=== PATIENT | female | born 1970 | race Caucasian/White ===

== ENCOUNTER → 2020-05-23 | Outpatient (CLI) | payer OTHER, SELFPAY ==
--- NOTE | 2020-05-23 | CYSPIN_PTH ---
PATIENT: CHRISTOPHER BATRES LOC: [facility] U#:[id number] AGE/SX: 49/F ROOM: RE05/23/[address]: Dr. Kelley Zhang MD : [id number] BED: DIS: 05/23/2020 SPEC #: [id number] RECD: 05/24/20 08:52 STATUS: DINAH JOE #: [id number] LUISA: 05/23/20 00:[address]: Kelley Zhang DEPT: CYTOLOGY RECD BY: Nito Vogt ENTERED: 05/24/20 08:52 SP TYPE: CYSPIN FL OTHR DR: No Primary Care Phys Tissues: Urine Procedures: Pap Stain (control) Special Stain Group II Cytospin Fluid HEADER OPERATION: Not noted PRE-OP DIAGNOSIS: Gross hematuria TISSUE SUBMITTED: Urine for cytology DIAGNOSIS CYTOLOGY Urine for cytology (cytospin): Atypical urothelial cells are present. AM:isreal 05/24/20 CYTOLOGY STUDY Slides are reviewed. CYTOLOGY GROSS Received is 50 ml of yellow cloudy fluid labeled with the patient's name and and designated per the requisition as urine. Submitted for cytology preparation. / isreal 05/24/20 TC:? CPT: 10879
[2020-05-23 16:56] LABS: Cytology, Body Fluid / CSF SEE PATHOLOGY REPORT
== END | disposition home or self-care (01) ==
PROVIDERS: Referring Provider Urology; Visit Provider Urology
DX: R31.0 Gross hematuria (principal)
CPT/HCPCS: 88108; 88313

== ENCOUNTER 2020-06-21 10:38 | Day surgery (SDC) | payer OTHER, SELFPAY ==
[2020-06-21] VITALS (7 sets, daily range): BP systolic 93–161; BP diastolic 56–97; PULSE 55–71; RESP 14–18; TEMP 35.9–36.3; O2SAT 94–99; BMI 39.9
[2020-06-21] MEDS: Lactated Ringers 1,000 ML 100 ML IV ×2 (11:15→14:02)
--- NOTE | 2020-06-21 12:42 | PCM.HP.STD ---
Problem List (1) Right ureteral calculus Status: Acute (2) Right renal atrophy Status: Acute (3) Left renal mass Status: Acute History of Present Illness Date of Admission: 06/21/20 Chief Complaint: Right obstructing kidney stones left renal mass The patient is a 49 year old female who presented to the office for an evaluation she has multiple stones in the right ureter she has an atrophic right kidney today we will plan to proceed with right ureteroscopy laser lithotripsy of all the stones and right stent placement and then will remove the stent about a week later she does have a essentially a solitary left kidney with a very large mass in the left kidney. Plan to proceed with right ureteroscopy laser lithotripsy of the right stones in the right ureter and the right kidney stent placement the right side to maximize drainage and function from the right atrophic kidney and then I will plan to have her referred for management of the left renal mass and a solitary left kidney Past Medical History Allergies No Known Allergies Allergy (Verified 06/13/20 09:10) Home Medications: Ambulatory Orders Medication Instructions Recorded Buspirone HCl 10 mg PO DAILY 06/13/20 Metoprolol Tartrate [Lopressor 50 mg PO DAILY 06/13/20 (Beta Atiya)] Sertraline HCl [Zoloft] 100 mg PO DAILY 06/13/20 Surgical History: no surgical history Smoking Status: Never smoker Tobacco Use: Non-smoker Review of Systems Constitutional: Denies: Chills, Fever, Weight Change HEENT: Denies: Head Aches, Sinus Congestion, Sinus Drainage Cardiovascular: Denies: Chest Pain, Palpitations Respiratory: Denies: Cough, Shortness of breath at rest, Sputum production Gastrointestinal: Denies: Abdominal Pain, Nausea, Vomiting Genitourinary: Denies: Dysuria Musculoskeletal: Denies: Joint Pain, Joint Tenderness Skin: Denies: Rash, Wounds Neurological: Denies: Numbness, Tingling, Focal weakness Psychiatric: Denies: Anxiety, Depression, Homicidal Ideations, Suicidal Ideations Hematologic/ Lymphatic: Denies: Easy Bruising, Easy Bleeding VTE Information - Inpt Only VTE Present on Admission: No - Physical Exam Vitals/I&O's: Vital Signs Temp Pulse Resp BP Pulse Ox 97.3 F L 55 L 14 161/97 H 99 06/21/20 10:55 06/21/20 10:55 06/21/20 10:55 06/21/20 10:55 06/21/20 10:55 Oxygen Delivery Method Room Air Weight: 92.9 kg Body Mass Index (BMI) 39.9 General: Alert, Oriented x3, Cooperative HEENT: Atraumatic, PERRLA, EOMI, Normocephalic Neck: Supple, No JVD, Negative Carotid Bruits Lungs: Clear to auscultation, Normal air movement Cardiovascular: Regular rate, No murmurs Abdomen: Bowel Sounds Present, Soft, Non Tender Extremities: No edema, Capillary Refill Less than 3 Seconds Skin: No rashes, No breakdown Musculoskeletal: No Tenderness to Palpation of Joints or Extremities Neurological: Cranial nerves II-XII grossly intact Psych/Mental Status: Normal Affect, Appropriate Current Medications Lactated Ringer's () 1,000 mls @ 100 mls/hr IV .Q10H ILYA Last Admin: 06/21/20 11:15 Dose: 100 mls/hr Documented by: Assessment/Plan All Active Problems Right ureteral calculus (Acute) Right renal atrophy (Acute) Left renal mass (Acute) Plan to proceed with right ureteroscopy laser lithotripsy of stones and right stent placement.
--- NOTE | 2020-06-21 12:46 | DCINST_ITS ---
Discharge Diet: Light diet - advance as tolerated Discharge Activity: Return to Normal Activity Suture Line Care: Avoid Pulling/Pushing, Avoid Pinching/Bending Allergies/Adverse Reactions: Allergies No Known Allergies Allergy (Verified 06/13/20 09:10) Medications to take at Discharge Buspirone HCl 10 mg PO DAILY 06/13/20 Metoprolol Tartrate [Lopressor (Beta Atiya)] 50 mg PO DAILY 06/13/20 Sertraline HCl [Zoloft] 100 mg PO DAILY 06/13/20 Ciprofloxacin [Cipro] 500 mg PO BID #6 tab 06/21/20 Hydrocodone/Acetaminophen [[place] 5-325 Tablet] 1 each PO Q4H PRN PRN 5 Days #10 tablet 06/21/20 Primary Care Physician: Jessica Best PA [Primary Care Provider] - Test Results: Test results from this visit will be discussed in further detail at your follow- up appointment, if applicable. Please Follow Up With: Panfilo Kamara MD When: please call to make an appointment.
[2020-06-21] MEDS: Cefazolin 2 GM in 0.9% Normal Saline 100 ML IV (12:57)
--- NOTE | 2020-06-21 13:27 | OP.PCM_ITS ---
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 Then will refer her out for treatment of the left renal mass Patient was taken back to the operating room at the smooth induction of general anesthesia she was placed in dorsolithotomy position went into the bladder with a 21 [place] rigid cystourethroscope the entire length the urethra is normal the bladder was normal identified the right and left ureteral orifice I then cannulated the left ureteral orifice and advanced a 0.038 Glidewire immediately the wire coiled and would not go up the ureter I then tried a 0.035 Glidewire and again a coil in the distal ureter and would not go up the ureter I performed a retrograde pyelogram, retrograde showed that there was a severe stricture in the distal ureter on the right side with a squeaky of contrast to get through it and then a very dilated ureter and dilated ureter all the way to the right kidney. After looking at the anatomy I tried a 0.035 Glidewire again and this time was fortunately was able to get through the area and the wire coiled up in the kidney I then used a Pollack catheter over the wire it was a 5 [place] open- ended Pollack catheter was able to get over the 0.035 Glidewire but it was very difficult to get to the area performed another contrast retrograde to perform to document that was in the ureter still and had not gone submucosal. 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 so over the Super Stiff wire I was able to advance a 6 [place] by 26 cm stent into the right kidney was very difficult and the stent was sort of accordion as a go up but it eventually got through the stricture and I left it up in the right side once I pulled the wire the stent coiled in the kidney and bladder in good position plan is to see her next week we will get a renal gram and also do a referral for the mass on the left side if she has no function in the right kidney then we will just remove the stent on the right side if there is function want to consider whether reimplant or other procedure would be amendable. It really depends on how much function is in the right kidney. Type of Anesthesia:: General
== END 2020-06-21 15:48 | disposition home or self-care (01) ==
LOC: SDC 10:41 → AC 10:42
PROVIDERS: Anesthesiology; PCP Physician Assistant; Referring Provider Urology; Visit Provider Urology
PROC: 0TJ98ZZ Inspection of Ureter, Via Natural or Artificial Opening Endoscopic (ICD-10-PCS; CPT 52352; principal; 2020-06-21 12:35)
DX: N20.1 Calculus of ureter (principal); N26.1 Atrophy of kidney (terminal); D41.02 Neoplasm of uncertain behavior of left kidney; I10 Essential (primary) hypertension; F32.9 Major depressive disorder, single episode, unspecified; F41.9 Anxiety disorder, unspecified; E66.9 Obesity, unspecified; Z68.41 Body mass index [BMI] 40.0-44.9, adult; Z20.828 Contact with and (suspected) exposure to other viral communicable diseases
CPT/HCPCS: 00910; 52332; 76000; 87635; C9803; J7120; C1769; C2617; J2405; U0003

== ENCOUNTER → 2020-06-28 11:38 | Outpatient (CLI) | payer OTHER, SELFPAY ==
[2020-06-21 10:55] VITALS: BMI 39.9
--- NOTE | 2020-06-28 11:41 | NM_ITS ---
CLINICAL: 49-year-old female with reported history of left kidney renal mass formation and hypofunctioning right kidney. 99m Tc MAG3 DIURETIC RENAL SCINTIGRAPHY COMPARISON: None available FINDINGS: Following the intravenous administration of 10.8 mCi of 99m Tc MAG3, renal images reveal: 1. The flow study demonstrates relatively normal arterial phase distribution of the radiopharmaceutical to the left kidney. Flow to the right kidney is markedly delayed and decreased 2. Immediate static delayed nephrogram images depict relatively prompt tracer uptake is noted by the left renal unit. A parenchymal defect is defined in the left kidney at the midpole laterally. There is visualization of the right kidney parenchyma at 2-4 minutes following tracer provision. Collecting structure visualization is observed by approximately 4 minutes post radiotracer injection in both kidneys. Washout of the radiopharmaceutical by the renal parenchyma of the left kidney appears qualitatively normal and delayed-decreased in the right kidney. There is a component of spontaneous drainage of the left kidney collecting system activity identified during 20 minutes of pre-Lasix sequential image acquisition. Continued demonstration of prominent right kidney collecting system activity is defined prior to FUROSEMIDE administration. 3. The [id number] ratio of total renal parenchymal function was calculated to be 14/86. Furosemide 10 mg was administered intravenously. The post Lasix T ? washout of the persistent left kidney collecting system activity was calculated to be < 10 minutes and is > 20 minutes regarding the right kidney collecting system, (normal < 10 minutes). Analysis of the post-Lasix right kidney collecting system time activity curve demonstrates increasing count statistics. NM/Renal Scan w/ Pharm Intervent IMPRESSION: 1. There is is preservation of left kidney renal parenchymal-cortical function. Cortical dysfunction is visualized in the right kidney. 2. The prominent ectatic right kidney collecting system demonstrates an abnormal response to induced diuresis which may represent the presence of mechanical and/or functional obstruction. False positive results may be encountered when the affected kidney contributes < 30% of the overall total renal parenchymal function. Electronically Signed: Armen Padilla DO at 20:09 EST Tel , Service support ,
[2020-06-28] MEDS: Furosemide 20 MG/2 ML VIAL 10 MG IV (12:15)
== END ==
PROVIDERS: PCP Physician Assistant; Referring Provider Urology; Visit Provider Urology
DX: N20.1 Calculus of ureter (principal); D41.02 Neoplasm of uncertain behavior of left kidney
CPT/HCPCS: 78708; A9562; J1940

== ENCOUNTER → 2020-07-04 09:44 | Outpatient (CLI) | payer OTHER, SELFPAY ==
[2020-06-21 10:55] VITALS: BMI 39.9
--- NOTE | 2020-07-04 09:46 | RAD_ITS ---
STUDY: X-RAY - ABDOMEN/PELVIS REASON FOR EXAM: Female, 49 years old. KIDNEY STONES, PASSED A COUPLE THIS MORNING TECHNIQUE: Frontal views COMPARISON: None. FINDINGS: Normal visualized lung bases. There is an unremarkable bowel gas pattern. There is no demonstrated free abdominal air. There is a right-sided ureteral stent in place. There are calcifications over the left renal shadow. Normal soft tissue structures. Normal visualized osseous structures. RAD/Abdomen Single View IMPRESSION: Left renal calculi. Right ureteral stent. Electronically Signed: Isacc Camp DO at 23:58 EST Tel [phone], Service support ,
== END ==
PROVIDERS: PCP Physician Assistant; Referring Provider Urology; Visit Provider Urology
DX: N20.0 Calculus of kidney (principal)
CPT/HCPCS: 74018; 82360

== ENCOUNTER 2020-07-19 11:53 | Day surgery (SDC) | payer OTHER, SELFPAY ==
[2020-06-21 10:55] VITALS: BMI 39.9
--- NOTE | 2020-07-10 11:07 | RAD_ITS ---
HISTORY: PRE OP, LEFT SIDE KS/STENT ADDITIONAL HISTORY: None. COMPARISON: 07/04/2020 EXAMINATION/TECHNIQUE: XR Abdomen 1 View Number of images including paperwork: 1 FINDINGS: FREE AIR: None detected. BOWEL GAS PATTERN: Nonobstructive. CALCIFICATIONS: Left-sided renal calculi are noted measuring up to about 7 x 12 mm. Right ureteral stent is noted and grossly appropriate anatomic position. ORGANS: No evidence of organomegaly. SOFT TISSUES: Unremarkable. BONES: No acute skeletal findings. LOWER CHEST: Unremarkable visible portions. DEVICES: None. RAD/Abdomen Single View IMPRESSION: Right ureteral stent in place. Left renal calculi appear grossly similar. at 0015 Reported and signed by: Cynthia Palacios MD Electronically Signed: Cynthia Palacios MD at 0:15 EST Tel , Service support ,
[2020-07-10 11:48] VITALS: BP 197/107; PULSE 55; RESP 16; TEMP 36.4; O2SAT 99; BMI 39.7
[2020-07-10] MEDS: Lactated Ringers 1,000 ML 100 ML IV (11:50)
--- NOTE | 2020-07-10 12:19 | PCM.HP.STD ---
Problem List (1) Left renal stone Status: Acute History of Present Illness Date of Admission: 07/10/20 Chief Complaint: Left kidney stone The patient is a 49 year old female who has a solitary, essentially a solitary left kidney large mass in the kidney but she also has obstructing stones that recently passed also the significant burden of stones in the kidney itself so we will proceed with cystoscopy left stent placement and left ESWL Past Medical History Allergies No Known Allergies Allergy (Verified 07/10/20 11:44) Home Medications: Ambulatory Orders Medication Instructions Recorded Buspirone HCl 10 mg PO DAILY 06/13/20 Metoprolol Tartrate [Lopressor 50 mg PO DAILY 06/13/20 (Beta Atiya)] Sertraline HCl [Zoloft] 100 mg PO DAILY 06/13/20 Surgical History: no surgical history Smoking Status: Never smoker Review of Systems Constitutional: Denies: Chills, Fever, Weight Change HEENT: Denies: Head Aches, Sinus Congestion, Sinus Drainage Cardiovascular: Denies: Chest Pain, Palpitations Respiratory: Denies: Cough, Shortness of breath at rest, Sputum production Gastrointestinal: Denies: Abdominal Pain, Nausea, Vomiting Genitourinary: Denies: Dysuria Musculoskeletal: Denies: Joint Pain, Joint Tenderness Skin: Denies: Rash, Wounds Neurological: Denies: Numbness, Tingling, Focal weakness Psychiatric: Denies: Anxiety, Depression, Homicidal Ideations, Suicidal Ideations Hematologic/ Lymphatic: Denies: Easy Bruising, Easy Bleeding VTE Information - Inpt Only VTE Present on Admission: No - Physical Exam Vitals/I&O's: Vital Signs Temp Pulse Resp BP Pulse Ox 97.5 F L 55 L 16 197/107 H 99 07/10/20 11:48 07/10/20 11:48 07/10/20 11:48 07/10/20 11:48 07/10/20 11:48 Oxygen Delivery Method Room Air Weight: 92.3 kg Body Mass Index (BMI) 39.7 General: Alert, Oriented x3, Cooperative HEENT: Atraumatic, PERRLA, EOMI, Normocephalic Neck: Supple, No JVD, Negative Carotid Bruits Lungs: Clear to auscultation, Normal air movement Cardiovascular: Regular rate, No murmurs Abdomen: Bowel Sounds Present, Soft, Non Tender Extremities: No edema, Capillary Refill Less than 3 Seconds Skin: No rashes, No breakdown Musculoskeletal: No Tenderness to Palpation of Joints or Extremities Neurological: Cranial nerves II-XII grossly intact Psych/Mental Status: Normal Affect, Appropriate Microbiology Past 72 Hours 07/09/20 14:10 Interface Orders SARS-CoV-2 Antigen (Rapid) - Final Current Medications Cefazolin Sodium 2 gm/ Sodium (Chloride) 110 mls @ 150 mls/hr IV PREOP ONE Stop: 07/10/20 14:03 Lactated Ringer's () 1,000 mls @ 100 mls/hr IV .Q10H ILYA Last Admin: 07/10/20 11:50 Dose: 100 mls/hr Documented by: Assessment/Plan All Active Problems Right ureteral calculus (Acute) Right renal atrophy (Acute) Left renal mass (Acute) Left renal stone (Acute) Plan for cystoscopy left stent placement and left ESWL
--- NOTE | 2020-07-10 12:21 | DCINST_ITS ---
Discharge Diet: No Restrictions Discharge Activity: Return to Normal Activity, May Not Drive - for 2 days. Additional Activity Instructions:: Please be aware that pain medications may cause nausea. You should typically eat light foods as you take your pain medication. Pain medication may cause constipation, if this is a problem for you, please discuss with your doctor. Allergies/Adverse Reactions: Allergies No Known Allergies Allergy (Verified 07/10/20 11:44) Medications to take at Discharge Buspirone HCl 10 mg PO DAILY 06/13/20 Metoprolol Tartrate [Lopressor (Beta Atiya)] 50 mg PO DAILY 06/13/20 Sertraline HCl [Zoloft] 100 mg PO DAILY 06/13/20 Orders to be completed after discharge: Abdomen Single View [RAD] Time Frame: 07/10/20, Facility: [facility], Location: [facility] Primary Care Physician: Jessica Best PA [Primary Care Provider] - Test Results: Test results from this visit will be discussed in further detail at your follow- up appointment, if applicable. Please Follow Up With: Panfilo Kamara MD When: in 2 weeks, please call to make an appointment.
[2020-07-19] VITALS (11 sets, daily range): BP systolic 105–147; BP diastolic 71–96; PULSE 54–71; RESP 16; TEMP 36.1–36.8; O2SAT 92–98; BMI 39.2
--- NOTE | 2020-07-19 12:00 | RAD_ITS ---
STUDY: X-RAY - ABDOMEN/PELVIS REASON FOR EXAM: Female, 49 years old. LT SIDE K.S. AND TUMOR. PRE-ESWL. HX POOR FUNCTIONING RT KIDNEY TECHNIQUE: Two AP supine views of the abdomen and pelvis. COMPARISON: 07/10/2020 FINDINGS: Normal visualized lung bases. There is an unremarkable bowel gas pattern. There is no demonstrated free abdominal air. Right-sided ureteral stent is noted. No evidence of stone. Left-sided nephrolithiasis is noted. No significant change from prior. RAD/Abdomen Single View IMPRESSION: Stable interval exam Electronically Signed: Piotr Erazo DO at 12:44 EST Tel , Service support ,
--- NOTE | 2020-07-19 12:36 | PCM.DC.URO ---
Discharge Diet: No Restrictions Discharge Activity: Return to Normal Activity, May Not Drive - for 2 days. Additional Activity Instructions:: Please be aware that pain medications may cause nausea. You should typically eat light foods as you take your pain medication. Pain medication may cause constipation, if this is a problem for you, please discuss with your doctor. Allergies/Adverse Reactions: Allergies No Known Allergies Allergy (Verified 07/10/20 11:44) Medications to take at Discharge Buspirone HCl 10 mg PO DAILY 06/13/20 Metoprolol Tartrate [Lopressor (Beta Atiya)] 50 mg PO DAILY 06/13/20 Sertraline HCl [Zoloft] 100 mg PO DAILY 06/13/20 Lisinopril [Prinivil] 10 mg PO DAILY 07/15/20 Lorazepam 0.5 mg PO Q8H PRN 07/15/20 Orders to be completed after discharge: Abdomen Single View [RAD] Time Frame: 07/19/20, Facility: [facility], Location: [facility] Primary Care Physician: Jessica Best PA [Primary Care Provider] - Test Results: Test results from this visit will be discussed in further detail at your follow-up appointment, if applicable. Please Follow Up With: Panfilo Kamara MD When: please call to make an appointment- to remove stent 1 week
[2020-07-19] MEDS: Lactated Ringers 1,000 ML 100 ML IV ×2 (12:47→14:47)
[2020-07-19] MEDS: Cefazolin 2 GM in 0.9% Normal Saline 100 ML IV (13:12)
--- NOTE | 2020-07-19 14:14 | PCM.OPRPT ---
Problem List (1) Left renal stone Status: Acute Report of Operation Date of Procedure: 07/19/20 Pre-Operative Diagnosis: Left multiple renal calculi lower pole Post-Operative Diagnosis: Same Surgery/Procedure Performed:: Left extracorporeal shockwave lithotripsy and cystoscopy left stent placement Description of Surgical Findings:: 49-year-old female who has stones in the left kidney she also has a mass in the left kidney we will get a treat the kidney stones that she has had a recent event where she passed fairly large stone she still has multiple large stones in the left kidney were treated with shockwave lithotripsy will need to place a stent given the size of the stones. Patient was taken back to the operating room after smooth induction of general anesthesia she was placed in dorsolithotomy position the urethra vaginal area prepped and draped in usual sterile fashion. Went into the bladder with a 21 Kisw[place]ili rigid cystourethroscope. Cannulated the left ureteral orifice with a wire advanced all the way to the kidney. Over the stent and then placed a 6 x 26 cm stent on the left side. She had existing stent in the right side this was left in place. We then repositioned the patient on the table and found the stones in the left kidney and applied 3000 shockwaves to the stone at a rate of 90 with a power of the 6 kV. During the 300 for shocks we did a really low power and then we did a pause and then we did the rest of the shocks slowly increasing the power to limit the risk of damaging the solitary, essentially solitary left kidney. At the end of the procedure the patient anesthetic was reversed taken back to PACU in good condition and she can see me back in about 7 to 10 days for cystoscopy stent removal to remove the stent on the left side. Type of Anesthesia:: General Drains: stent left side - Admit VTE Documentation VTE Present on Admission: No VTE Mechan Device Prophylaxis: SCD's
== END 2020-07-19 16:54 | disposition home or self-care (01) ==
LOC: SDC 11:53 → AC 11:54
PROVIDERS: PCP Physician Assistant; Referring Provider Urology; Visit Provider Urology
PROC: (CPT 50590; principal; 2020-07-19 13:55)
DX: N20.0 Calculus of kidney (principal); N28.89 Other specified disorders of kidney and ureter; Z87.442 Personal history of urinary calculi; I10 Essential (primary) hypertension; F32.9 Major depressive disorder, single episode, unspecified; F41.9 Anxiety disorder, unspecified; Z79.899 Other long term (current) drug therapy; Z20.828 Contact with and (suspected) exposure to other viral communicable diseases
CPT/HCPCS: 52356; 74018; 87426; C9803; J7120; C2617; J2405

== ENCOUNTER → 2020-07-29 15:44 | Outpatient (CLI) | payer OTHER, SELFPAY ==
[2020-07-19 12:37] VITALS: BMI 39.2
--- NOTE | 2020-07-29 15:45 | RAD_ITS ---
STUDY: X-RAY - ABDOMEN/PELVIS REASON FOR EXAM: Female, 49 years old. Left sided kidney stone, ESWL on 07/19 TECHNIQUE: Single AP view of the abdomen / pelvis. COMPARISON: Comparison is made with prior study dated 07/19/2020. FINDINGS: Normal visualized lung bases. There is an unremarkable bowel gas pattern. Bilateral double-J stent catheter placement. The previously seen calculi in the mid inferior pole of the left kidney are much smaller and less dense. Normal visualized osseous structures. RAD/Abdomen Single View IMPRESSION: Status post bilateral double J stent placement. Interval decrease in size and density of the calculi seen in the mid inferior pole of the left kidney. Electronically Signed: Sarbjit Joseph, at 15:35 EST , Service support ,
== END ==
PROVIDERS: PCP Physician Assistant; Referring Provider Urology; Visit Provider Urology
DX: N20.0 Calculus of kidney (principal)
CPT/HCPCS: 74018